=== PATIENT | male | born 1945 | race Caucasian/White ===

== ENCOUNTER 2019-09-24 13:58 | Outpatient (CLI) | payer OTHER | END 2019-09-24 23:59 | disposition home or self-care (01) | LOC: CARD DIAG 13:58 | PROVIDERS: ATTEND Orthopaedic Surgery | DX: I08.2 Rheumatic disorders of both aortic and tricuspid valves (principal) | CPT/HCPCS: 93306 ==

== ENCOUNTER 2020-03-07 11:16 | Outpatient (CLI) | payer OTHER | END 2020-03-07 23:59 | disposition home or self-care (01) | LOC: CARD DIAG 11:16 | PROVIDERS: ATTEND Orthopaedic Surgery | DX: I48.91 Unspecified atrial fibrillation (principal); I44.7 Left bundle-branch block, unspecified | CPT/HCPCS: 93005 ==